=== PATIENT | female | born 1965 | race American Indian/Alaskan Native ===

== ENCOUNTER 2017-02-25 16:25 | Emergency (ER) | payer MEDICARE, OTHER ==
[2017-02-25 16:36] VITALS: PULSE 108; TEMP 97.5
--- NOTE | 2017-02-25 17:04 | C.PDOC ---
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 she has had seizures since 2000 and says she gets them about twice per week. 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 she is unsure of any diagnosis. her sx today were no different than usual but since she was at physician office they called [facility] and had her transported here. she currently denies any complaints. Time Seen by Provider: 02/25/17 16:40 Past Medical History Vital Signs: Last Vital Signs Temp 97.5 F L 02/25/17 16:35 Pulse 108 H 02/25/17 16:35 Resp 16 02/25/17 16:35 BP 151/94 H 02/25/17 16:35 Pulse Ox 100 02/25/17 17:09 - Medical History PMH: CHF, HTN, Seizures Family History: States: Other Other Family History: nc - Social History Hx Alcohol Use: No Hx Substance Use: No - Immunization History Hx Tetanus Toxoid Vaccination: No Hx Influenza Vaccination: No Review Of Systems Constitutional: Negative for: Fever, Chills, Weakness, Malaise Cardiovascular: Positive for: Palpitations. Negative for: Chest Pain, Edema Respiratory: Positive for: Cough (chronic for months), Shortness of Breath ( chronic for months, following with [employer] [facility]) Gastrointestinal: Negative for: Nausea, Vomiting, Abdominal Pain Genitourinary: Negative for: Dysuria Musculoskeletal: Negative for: Neck Pain Neurological: Negative for: Weakness, Numbness, Headache Physical Exam - Physical Exam Appears: Well, Non-toxic, No Acute Distress Skin: Warm, Dry Head: Atraumatic Eye(s): bilateral: PERRL, EOMI Nose: No Epistaxis Oral Mucosa: Moist Neck: Supple Cardiovascular: Rhythm Regular Respiratory: No Decreased Breath Sounds, No Accessory Muscle Use, No Rales, No Rhonchi, No Stridor, No Wheezing Gastrointestinal/Abdominal: Soft, No Tenderness Extremity: No Swelling Neurological/Psych: Oriented x3, Normal Cranial Nerves, Normal Motor, Normal Sensation, Other (no focal deficits) ED Course And Treatment - Laboratory Results Result Diagrams: 02/25/17 17:24 02/25/17 17:24 O2 Sat by Pulse Oximetry: 100 Medical Decision Making Medical Decision Making: ecg- nsr 90, nl axis, no acute ischemia Disposition - Disposition Referrals: Roberto Hughes DO [Staff Provider] - Disposition: HOME/ ROUTINE Disposition Time: 18:07 Condition: STABLE Additional Instructions: Please follow up with your doctor. Return to the ER for any worsening symptoms or for any other concerns. Forms: [facility] ([facility]), General Discharge Instructions - Clinical Impression Clinical Impression: Seizure
[2017-02-25 17:29] LABS: BASO % 0.4 % (0.0-2.0); EOS # 0.1 K/uL (0.0-0.7); EOS % 2.2 % (0.0-4.0); HEMOGLOBIN 13.4 g/dL (11.0-16.0); LYMPH # 2.2 K/uL (1.0-4.3); LYMPH % 32.9 % (20.0-40.0); MEAN CELL VOLUME 85.6 fL (81.0-99.0); MEAN CORPUSCULAR HEMOGLOBIN 28.4 pg (27.0-31.0); MEAN CORPUSCULAR HGB CONC 33.1 g/dL (33.0-37.0); MEAN PLATELET VOLUME 8.3 fL (7.2-11.7); MONO # 0.6 K/uL (0.0-0.8); MONO % 9.6 % (0.0-10.0); NEUT # 3.6 K/uL (1.8-7.0); NEUT % 54.9 % (50.0-75.0); NRBC % 0.2 % (0.0-2.0); RBC 4.73 Mil/uL (3.80-5.20); RED CELL DISTRIBUTION WIDTH 14.6 % (11.5-14.5); WHITE BLOOD COUNT 6.5 K/uL (4.8-10.8)
[2017-02-25 17:48] LABS: ALBUMIN 4.5 g/dL (3.5-5.0); ALT/SGPT 19 U/L (9-52); AST/SGOT 25 U/L (14-36); BLOOD UREA NITROGEN 17 mg/dL (7-17); CALCIUM 9.2 mg/dl (8.6-10.4); GFR AFRICAN-AMERICAN > 60; GFR NON-AFRICAN AMERICAN > 60
[2017-02-25 17:51] LABS: ALB/GLOB RATIO 1.1 (1.0-2.1)
[2017-02-25 18:34] VITALS: BP 141/98; RESP 18; O2SAT 96
--- NOTE | 2017-02-26 07:21 | RAD ---
HISTORY: seizure COMPARISON: No prior. TECHNIQUE: Chest PA and lateral FINDINGS: LUNGS: No active pulmonary disease. PLEURA: No significant pleural effusion identified. No pneumothorax apparent. CARDIOVASCULAR: Normal. OSSEOUS STRUCTURES: A limited cervicothoracic scoliotic deformity is identified. VISUALIZED UPPER ABDOMEN: Normal. OTHER FINDINGS: None. IMPRESSION: No acute cardiopulmonary disease appreciated.
--- NOTE | 2017-02-26 11:17 | CARD ---
APPROVED REPORT EKG Measurement Heart [id number] <Conclusion> Normal sinus rhythm Possible Left atrial enlargement Anteroseptal infarct, age undetermined Abnormal ECG
[2017-03-02 16:00] LABS: LEVETIRACETAM 6.3 mcg/mL
== END 2017-02-25 18:35 | disposition home or self-care (01) ==
LOC: EDBD 16:25 → C.ER 16:25
DX: R56.9 Unspecified convulsions (principal); I11.0 Hypertensive heart disease with heart failure; I50.9 Heart failure, unspecified